=== PATIENT | male | born 2000 ===

== ENCOUNTER 2021-02-05 09:32 | Emergency (ER) | payer OTHER ==
[~2021-02-05] VITALS: Ht 175.3 cm; Wt 74.8 kg
[2021-02-06 08:08] LABS: HCV ANTIBODY <0.1 (0.0-0.9)
[2021-02-07 00:09] LABS: HIV SCREEN 4TH GENERATION WRFX Non Reactive (Non Reactive)
== END 2021-02-05 10:00 | disposition home or self-care (01) ==
LOC: ER 09:32
PROVIDERS: Physician Assistant
DX: S61.432A Puncture wound without foreign body of left hand, initial encounter (principal); W46.1XXA Contact with contaminated hypodermic needle, initial encounter
CPT/HCPCS: 84460; 86317; 86803; 87389; 99282